=== PATIENT | male | born 1935 | race Caucasian/White ===

== ENCOUNTER → 2016-10-28 | Outpatient (CLI) | payer MEDICARE, OTHER | LOC: COL.RAD 11:06 | DX: M25.511 Pain in right shoulder (principal); M25.411 Effusion, right shoulder; Z96.611 Presence of right artificial shoulder joint ==

== ENCOUNTER 2017-08-07 05:07 | Day surgery (SDC) | payer MEDICARE, OTHER ==
[~2017-08-07] VITALS: Ht 180.3 cm; Wt 93.6 kg
[2017-08-07] MEDS ORDERED: TOPROL XL 50MG50 MG PO (05:47)
[2017-08-07] MEDS ORDERED: LIPITOR20 MG PO (05:48)
[2017-08-07] MEDS ORDERED: MULTI VITAMINS1 TAB PO (05:49)
[2017-08-07] MEDS ORDERED: ASPIRIN 81M81 MG/TA2 PO (05:49)
[2017-08-07] MEDS ORDERED: PROSVENT PO (05:50)
[2017-08-07] MEDS ORDERED: CALTRATE-600 W600 MG PO (05:50)
[2017-08-07] MEDS ORDERED: VITAMIN C500 MG PO (05:50)
[2017-08-07] MEDS ORDERED: OMEGA-3 1000 MG1 CAP PO (05:51)
[2017-08-07 05:54] VITALS: BP 116/56; PULSE 60; TEMP 97.8
[2017-08-07 08:25] VITALS: BP 136/58; PULSE 82; TEMP 97.2
[2017-08-07 08:40] VITALS: BP 120/57; PULSE 62
[2017-08-07 08:55] VITALS: BP 112/63; PULSE 68
== END 2017-08-07 09:40 | disposition home or self-care (01) ==
LOC: SDCO 05:07
DX: L60.2 Onychogryphosis (principal); M25.774 Osteophyte, right foot; L89.899 Pressure ulcer of other site, unspecified stage; L84 Corns and callosities; Z79.82 Long term (current) use of aspirin; I10 Essential (primary) hypertension; M19.90 Unspecified osteoarthritis, unspecified site; M06.9 Rheumatoid arthritis, unspecified; F17.220 Nicotine dependence, chewing tobacco, uncomplicated; Z80.9 Family history of malignant neoplasm, unspecified; Z82.49 Family history of ischemic heart disease and other diseases of the circulatory system; Z68.28 Body mass index [BMI] 28.0-28.9, adult; E78.00 Pure hypercholesterolemia, unspecified; I25.10 Atherosclerotic heart disease of native coronary artery without angina pectoris; K21.9 Gastro-esophageal reflux disease without esophagitis; Z87.442 Personal history of urinary calculi
CPT/HCPCS: J0690; J2704; J3010; J7120

== ENCOUNTER → 2018-08-29 | Outpatient (CLI) | payer MEDICARE, OTHER ==
[~2018-08-29] MED LIST: ASPIRIN 81M81 MG/TA2 PO; CALTRATE-600 W600 MG PO; LIPITOR20 MG PO; MULTI VITAMINS1 TAB PO; OMEGA-3 1000 MG1 CAP PO; PROSVENT PO; TOPROL XL 50MG50 MG PO; VITAMIN C500 MG PO
[2018-08-29 12:00] LABS: HEMATOCRIT 39.1 % (42.0-52.0); HEMOGLOBIN 12.5 g/dl (13.5-18.0); MEAN CELL VOLUME 92 fl (80.0-100.0); MEAN CORPUSCULAR HEMOGLOBIN 29 pg (27.0-31.0); MEAN CORPUSCULAR HGB CONC 32 g/dl (33.0-37.0); MEAN PLATELET VOLUME 9.6 fl (7.4-10.4); PLATELET COUNT 236 K/mm3 (130-400); RED BLOOD COUNT 4.26 M/mm3 (4.20-5.60); REDCELL DISTRIBUTION WIDTH-CV 12.5 % (11.5-14.5)
[2018-08-29 12:21] LABS: ALBUMIN 3.5 gm/dL (3.5-5.0); BILIRUBIN,TOTAL 0.5 mg/dL (0.0-1.0); C-REACTIVE PROTEIN 0.8 mg/dL (0.0-0.9); CALCIUM 8.9 mg/dL (8.4-10.2); CREATININE, serum 0.65 mg/dL (0.66-1.25); POTASSIUM 4.2 mmol/L (3.4-5.0); TOTAL PROTEIN 6.9 gm/dL (6.4-8.2)
[2018-08-29 12:38] LABS: ERYTHROCYTE SEDIMENTATION RATE 18 mm/hr (0-30)
== END ==
LOC: COL.LAB 10:52
PROVIDERS: Orthopaedic Surgery
DX: M25.511 Pain in right shoulder (principal); Z96.611 Presence of right artificial shoulder joint

== ENCOUNTER 2018-08-30 15:14 | Inpatient (IN) | payer MEDICARE, OTHER ==
[~2018-08-30] VITALS: Ht 180.3 cm; Wt 85.9 kg
[2018-11-06] VITALS (9 sets, daily range): BP systolic 95–137; BP diastolic 42–63; PULSE 5–91; TEMP 97.3–98.1
--- NOTE | 2018-11-06 06:19 | NUR ---
PT TO ROOM 329 PER WHEEL CHAIR. PRE OP ASSESSMENTS COMPLETE. EGK COMPLETE AND DR. BOYD NOTIFIED HIS RESPONSE WAS IT WILL BE READ AROUND 0700. OR NOTIFIED. ZAKI BOOTHE NOTIFIED @ 6965 THAT SURGICAL H&P NOT RECIEVED.
--- NOTE | 2018-11-06 06:28 | NUR ---
PT TO SURGERY PER BED WITH YONATAN AT THIS TIME. REPORT TO ESVIN VAZQUEZ. NOTIFIED OF PENDING EKG READING BY DR. GALO.
--- NOTE | 2018-11-06 11:36 | NUR ---
PT TO ROOM 329 PER BED WITH REPORT FROM STELLA IGNACIO PACU @8139. PT IS A/O X3, FOAM TAPE DRESSING TO RIGH SHOULDER WITH ICE BAG OVER INCISION. RIGHT ARM CDI IN ADDUCTION SLING.IV TO PUMP. SCDS BILATERALLY. PT DENIES PAIN. IV FLUIDS TO PUMP PER ORDERS.
--- NOTE | 2018-11-06 12:01 | NUR ---
First visit from the healthcare prof. Planning Advisor spoke with about healthcare prof services. No needs at this time.
--- NOTE | 2018-11-06 13:33 | NUR ---
SW student met with patient to discuss discharge plan. Patient lives [place] of [place] with his (Cristi). Patient's PCP was Dr. Floyd but since he retired, patient will go to see one of doctors that took over Mariel's practice. Patient uses the [facility]. Patient uses a cane regularly and also has a walker at home if needed. Patient needed occasional assistance with ADLs prior to surgery and states his has been able to help him so far. Patient does not have a DPOA-HC completed and was not interested in completing one as his is next of kin to make those decisions for him if needed. Dr. Chiu will set up PT with patient after shoulder has healed for 4-6 weeks. No identified needs at this time. SW to continue to follow to ensure safe discharge.
--- NOTE | 2018-11-06 19:22 | NUR ---
REPORT TO KATHERIN IGNACIO.
--- NOTE | 2018-11-06 20:30 | NUR ---
Upon assessment patient is resting comfortably in bed. Denies any pain to right shoulder. Denies N/V. Does report feeling to fingers, but states that they are still tingling. Bulky dressing to right shoulder CDI. Patient has IV fluids infusing at this time. No other needs at this time.
[2018-11-07 00:56] VITALS: BP 94/55; PULSE 61; TEMP 97.9
[2018-11-07 05:20] VITALS: BP 106/51; PULSE 57; TEMP 98.1
--- NOTE | 2018-11-07 07:40 | NUR ---
Patient report given to MATEUS Maya at bedside. Patient resting comfortably.
--- NOTE | 2018-11-07 10:03 | NUR ---
PT UP WITH HELP SEVERAL TIMES THIS AM. OK FOR DISCHARGE LATER TODAY. AQUACEL PLACED OVER INCISION. NOELLE INTACT. PT EATING AND DRINKING NO N/V. PAIN WELL CONTROLLED.
--- NOTE | 2018-11-07 10:50 | NUR ---
DISCHARGE INSTRUCTIONS REVIEWED WITH PT AND SPOUSE. QUESTIONS ANSWERED, PT TAKEN BY WHEEL CHAIR TO FRONT.
== END 2018-11-07 10:51 | disposition home or self-care (01) | DRG 483 ==
LOC: JCC 10-01 10:30
PROVIDERS: ADMIT Orthopaedic Surgery
PROC: 0RPJ0JZ Removal of Synthetic Substitute from Right Shoulder Joint, Open Approach (ICD-10-PCS; 2018-11-06)
PROC: 0RBJ0ZZ Excision of Right Shoulder Joint, Open Approach (ICD-10-PCS; 2018-11-06)
PROC: 0RRJ0J6 Replacement of Right Shoulder Joint with Synthetic Substitute, Humeral Surface, Open Approach (ICD-10-PCS; principal; 2018-11-06 07:30)
DX: T84.028A Dislocation of other internal joint prosthesis, initial encounter (principal); Z96.611 Presence of right artificial shoulder joint; I10 Essential (primary) hypertension; M06.9 Rheumatoid arthritis, unspecified; Z89.411 Acquired absence of right great toe; F17.220 Nicotine dependence, chewing tobacco, uncomplicated; M24.011 Loose body in right shoulder; I25.10 Atherosclerotic heart disease of native coronary artery without angina pectoris; J44.9 Chronic obstructive pulmonary disease, unspecified; F01.50 Vascular dementia, unspecified severity, without behavioral disturbance, psychotic disturbance, mood disturbance, and anxiety; K76.0 Fatty (change of) liver, not elsewhere classified; E78.5 Hyperlipidemia, unspecified
CPT/HCPCS: A4619; A9284; C1713; C1776; J0690; J1100; J2250; J2370; J2405; J2704; J2795; J3010; J3370; J7042; J7120

== ENCOUNTER 2018-11-08 08:09 | Outpatient (RCR) | payer MEDICARE, OTHER ==
[2018-11-13] MEDS ORDERED: OCUVITE1 TA1 PO (12:57)
[2018-11-13] MEDS ORDERED: MOTRIN 200200 MG/TAB PO (12:57)
[2018-11-25] MEDS ORDERED: ULTRAM 50MG TAB50 MG PO (09:16)
[2018-11-25] MEDS ORDERED: ROCEPHIN 2GM VIAL21 IV (14:12)
[2018-11-25] MEDS ORDERED: CUBICIN 500MG500 MG IV (14:12)
== END 2018-12-11 11:35 | disposition home or self-care (01) ==
LOC: WSC 08:09
DX: Z98.890 Other specified postprocedural states (principal); Z96.611 Presence of right artificial shoulder joint

== ENCOUNTER 2018-11-13 12:20 | Day surgery (SDC) | payer MEDICARE, OTHER ==
[~2018-11-13] VITALS: Ht 180.3 cm; Wt 86.4 kg
[2018-11-13] VITALS (9 sets, daily range): BP systolic 117–157; BP diastolic 50–64; PULSE 43–65; TEMP 97.5–98
--- NOTE | 2018-11-13 12:35 | NUR ---
arrived per WC to room 326, assisted into gown and into bed, at bedside
[2018-11-13] MEDS ORDERED: MOTRIN 200200 MG/TAB PO (12:57)
[2018-11-13] MEDS ORDERED: OCUVITE1 TA1 PO (12:57)
--- NOTE | 2018-11-13 13:00 | NUR ---
[facility] [place] see intervention for furtherinfo, IV started by MATEUS Finnegan, assessment revealed large pressure dressing to right shoulder with small amount of shadowing seen, patient states was in the Dr's office before coming to hospital and this dressing was placed by physician, has swome swelling to right arm and fingers, and minimal tingling, has full sensation and movement to right hand and fingers, consent for surgery signed, only has minimal pain, at bedside
--- NOTE | 2018-11-13 13:40 | NUR ---
to surgery per bed
--- NOTE | 2018-11-13 16:10 | NUR ---
returned to room from PACU, per bed, alert and oriented, IV infusing per dial-a-flow at 125ml/hr, O2 on at 2L/NC, bulky dressing with shamar wrap to right shoulder CD&I and sling on, has good sensation and movement to right hand, denies pain or needs, at bedside
--- NOTE | 2018-11-13 16:30 | NUR ---
has tolerated ice chips well, is hungry now, assisted with having pudding and if tolerates will let him order regular food
--- NOTE | 2018-11-13 17:00 | NUR ---
appears to be sleeping between checks
--- NOTE | 2018-11-13 17:30 | NUR ---
sitting up on side of bed eating supper and tolerates well
--- NOTE | 2018-11-13 18:00 | NUR ---
was able to stand at side of bed and then repositioned up in bed for comfort, dressing to right shoulder remains CD&I, denies needs
--- NOTE | 2018-11-13 18:52 | NUR ---
appears to be dozing with TV on, bedside shift report given to MATEUS Hamilton
--- NOTE | 2018-11-13 19:20 | NUR ---
Pt sleeping. No distress noted. Easily arousable. Respirations even and unlabored. Lungs clear. Abd soft, nontender. BS+. R shoulder incision with dressing clean dry and intact. Williams wrap to R shoulder. Sling to R arm. Ice pack on r shoulder. 2+ edema noted to R hand. CMS intact. Pulses equal. Pt weating O2@2 L via NC. Post op VSS. Pt has not been out of bed yet or voided. Pt denies pain. No needs noted. Will continue to monitor.
--- NOTE | 2018-11-13 21:30 | NUR ---
Pt sleeping. Difficult to arouse due to pt being hard of hearing. Pt awake and given HS meds. Pt denies pain. Pt up to bathroom with 2 assist. Gait is steady. No difficulty. Voiding clear, yellow urine.
[2018-11-14 00:44] VITALS: BP 128/64; PULSE 58; TEMP 98.1
[2018-11-14 04:05] VITALS: BP 120/54; BP 1220/54; PULSE 53; TEMP 97.8
--- NOTE | 2018-11-14 04:05 | NUR ---
Pt resting with HOB elevated. Easily arousable. No distress noted. VSS. Pt denies pain at this time. R hand swelling is still marked. Sling repositioned. YAMIL wrap removed from lower part of R arm. R hand elevated. CMS is intact in R hand. Will continue to monitor.
[2018-11-14 06:00] LABS: HEMATOCRIT 29.4 % (42.0-52.0); HEMOGLOBIN 9.2 g/dl (13.5-18.0)
--- NOTE | 2018-11-14 06:05 | NUR ---
Pt sleeping but easily awoken. Pt slept a majority of the shift. Was out of bed x1 to ambulate to bathroom. Also used urinal x1. Pt denied pain throughout shift. R hand continues to be edematous, but CMS intact. No other needs noted this AM.
[2018-11-14 07:46] VITALS: BP 133/79; PULSE 72; TEMP 97.9
--- NOTE | 2018-11-14 08:00 | NUR ---
Patient in room, alert and oriented x 3. Shift assessment complete. Occlusive dressing to right shoulder is CDI. Right arm in sling, +2 edema noted to right hand, CMS intact. Patient denies pain at this time. Denies further needs at this time.
--- NOTE | 2018-11-14 10:20 | NUR ---
Discharge instructions provided to patient. Educated on maintaining arm in sling and follow up appointment tomorrow to change dressing. Patient educated on signs and symptoms of infection and when to call provider. All questions answered. Patient verbalizes understanding. Denies further needs at this time. Assisted patinet to dress. Spouse at bedside. Patient out by wheelchair with surgical staff.
--- NOTE | 2018-11-14 10:35 | NUR ---
SW unable to meet with patient before discharge.
--- NOTE | 2018-11-14 11:44 | NUR ---
First visit from the children's court magistrate. No needs right now.
== END 2018-11-14 10:20 | disposition home or self-care (01) ==
LOC: SDCO 12:20 → SURG 12:20 → SDCO 17:00
PROVIDERS: Physician Assistant
DX: M96.840 Postprocedural hematoma of a musculoskeletal structure following a musculoskeletal system procedure (principal); D50.8 Other iron deficiency anemias; E78.00 Pure hypercholesterolemia, unspecified; I10 Essential (primary) hypertension; M06.9 Rheumatoid arthritis, unspecified; I25.10 Atherosclerotic heart disease of native coronary artery without angina pectoris; J44.9 Chronic obstructive pulmonary disease, unspecified; K21.9 Gastro-esophageal reflux disease without esophagitis; F03.90 Unspecified dementia, unspecified severity, without behavioral disturbance, psychotic disturbance, mood disturbance, and anxiety; F17.220 Nicotine dependence, chewing tobacco, uncomplicated; G89.29 Other chronic pain; Z96.611 Presence of right artificial shoulder joint; Z89.421 Acquired absence of other right toe(s); Z79.82 Long term (current) use of aspirin; Z80.9 Family history of malignant neoplasm, unspecified; Z82.49 Family history of ischemic heart disease and other diseases of the circulatory system; Z95.2 Presence of prosthetic heart valve; Z87.442 Personal history of urinary calculi; Z85.828 Personal history of other malignant neoplasm of skin
CPT/HCPCS: OP; A4619; A9284; J0690; J1100; J2405; J2704; J3010; J7120

== ENCOUNTER 2018-11-20 00:37 | Emergency (ER) | payer MEDICARE, OTHER ==
[~2018-11-20] VITALS: Ht 180.3 cm; Wt 84.1 kg
[~2018-11-20 00:37] MED LIST changes: +MOTRIN 200200 MG/TAB PO; +OCUVITE1 TA1 PO
[2018-11-20 00:46] VITALS: BP 149/77
[2018-11-20 00:53] VITALS: TEMP 98.3
[2018-11-20 03:18] LABS: BASO % 0.3 % (0.0-2.0); EOS # 0.1 (0.0-0.7); EOS % 1.8 % (0-4.0); GRAN # 3.7 (1.4-6.5); GRAN % 56.6 % (42.2-75.2); HEMATOCRIT 32.2 % (42.0-52.0); LYMPH # 2.2 (1.2-3.4); LYMPH % 33.4 % (20.0-51.0); MEAN CELL VOLUME 92 fl (80.0-100.0); MEAN CORPUSCULAR HEMOGLOBIN 29 pg (27.0-31.0); MEAN CORPUSCULAR HGB CONC 31 g/dl (33.0-37.0); MEAN PLATELET VOLUME 9.5 fl (7.4-10.4); MONO # 0.5 (0.1-0.6); MONO % 7.3 % (1.7-9.3); PLATELET COUNT 175 K/mm3 (130-400); RED BLOOD COUNT 3.51 M/mm3 (4.20-5.60); REDCELL DISTRIBUTION WIDTH-CV 15.3 % (11.5-14.5)
[2018-11-20 03:22] LABS: INR 1.1 (0.8-3.0); PROTHROMBIN TIME 12.7 SECONDS (9.7-12.8)
[2018-11-20 03:27] LABS: CALCIUM 8.6 mg/dL (8.4-10.2); CREATININE, serum 0.66 (0.66-1.25); POTASSIUM 4.6 mmol/L (3.4-5.0)
[2018-11-20 03:55] VITALS: PULSE 53
== END 2018-11-20 03:55 | disposition home or self-care (01) ==
LOC: COL.ER 00:37
PROVIDERS: Emergency Medicine
DX: L76.32 Postprocedural hematoma of skin and subcutaneous tissue following other procedure (principal); I10 Essential (primary) hypertension

== ENCOUNTER 2018-11-21 09:45 | Inpatient (IN) | payer MEDICARE, OTHER ==
[2018-11-21] VITALS (12 sets, daily range): BP systolic 80–146; BP diastolic 33–59; PULSE 57–69; TEMP 97.7–98
[~2018-11-21] VITALS: Ht 180.3 cm; Wt 87.9 kg
--- NOTE | 2018-11-21 10:15 | NUR ---
arrived on unit per WC, assisted out of WC and into bed and then into gown
--- NOTE | 2018-11-21 11:15 | NUR ---
admission assessment and preop checklist completed, bat carrier in to visit with patient, is ready for surgery, denies needs
--- NOTE | 2018-11-21 12:06 | NUR ---
to surgery per bed
--- NOTE | 2018-11-21 15:20 | NUR ---
returned to room from PACU per bed, appears very sleepy but awakens easily and is oriented, has bulky occlusive dressing with tim drain to compression to right shoulder, has light red drainage in tubing and reservoir, abduction sling on, has good sensation and movement to right hand and fingers, denies needs at this time
--- NOTE | 2018-11-21 15:45 | NUR ---
appears to be sleeping when enter room, awakens easily and C&DB as instructed,
--- NOTE | 2018-11-21 16:13 | NUR ---
continues to appear to sleep
--- NOTE | 2018-11-21 16:33 | NUR ---
awakens easily and denies needs
--- NOTE | 2018-11-21 17:05 | NUR ---
awakened and informed he had a visitor, is ready for something to eat, dozes while being asked what he wants to eat but then awakens when name is called, supper ordered
--- NOTE | 2018-11-21 17:30 | NUR ---
is awake and sitting up in bed feeding self,
--- NOTE | 2018-11-21 18:00 | NUR ---
Dr Chiu in to see patient and explained to him he must wear the abduction sling at all times except for bathing and dressing, he verbalizes he understands, unsure if he really does, continues with good sensation amd movement to right hand, had supper and tolerated well, denies urge to void
--- NOTE | 2018-11-21 18:44 | NUR ---
awakened and bedside shift report given to Alysia RN
--- NOTE | 2018-11-21 20:00 | NUR ---
Patient very sleepy, rouses to name being called, denies pain. Able to take po meds without problem. Has rt arm in sling, oxygen on at 3L/nc. IVF infusing to left upper arm without redness or swelling.
[2018-11-22 04:00] VITALS: BP 127/45; PULSE 64; TEMP 98.2
--- NOTE | 2018-11-22 04:08 | NUR ---
Patient had not voided since surgery. Assisted to standing at bedside, voids per urinal 400cc of yellow urine. JONATHAN emtied for 30cc sero-sang drainage. Back to bed, oxygen on at 3L/nc. IVF infusing to left upper arm without redness or swelling. Denies need for pain medication at this time, reports no pain to right shoulder. Rt arm remains in sling.
[2018-11-22 07:20] VITALS: BP 107/48; PULSE 57; TEMP 97.9
--- NOTE | 2018-11-22 09:00 | NUR ---
Initial visit; Patient thanked Corporate Travel Expert for looking in on him, offering comfort and encouragement and God's blessings.
[2018-11-22 10:35] VITALS: BP 132/57; PULSE 85; TEMP 97.9
--- NOTE | 2018-11-22 13:38 | NUR ---
SW met with patient to discuss discharge planning. Patient lives independently at home with his and he plans to return there upon discharge. Patient's PCP is Dr Alegria and he obtains prescriptions from [facility]. Patient does not use any DME or home health services and does not think he will need those services anytime in the future. SW does not anticipate any discharge needs but with follow as needed.
[2018-11-22 16:18] VITALS: BP 122/45; PULSE 71; TEMP 98.3
--- NOTE | 2018-11-22 19:00 | NUR ---
Patient has been doing well today. No complaints of pain. He continues to need reminders to not use his right arm. He is not getting up and moving as well as he did at home. He continues to have moderate output from his drain. His was here most the day. No other changes at this time.
[2018-11-22 19:59] VITALS: BP 123/93; PULSE 77; TEMP 98.9
--- NOTE | 2018-11-22 20:05 | NUR ---
Patient in bed, reports pain to back and nothing significant to right shoulder. Takes HS meds including Tramadol 50mg po at this time. JONATHAN with 30cc drainage emptied at this time. CSM to right hand WNL. Right arm remains in sling, dressing D/I and ice pack applied.
[2018-11-22 22:53] VITALS: BP 125/50; PULSE 66; TEMP 98.2
--- NOTE | 2018-11-22 23:25 | NUR ---
Patient reporting pain continues to back and some to right shoulder. Medicated with Oxycodone 5mg po at this time.
--- NOTE | 2018-11-23 02:28 | NUR ---
Assisted to standing at bedside, voids per urinal 250cc yellow urine. Back to bed with minimal assist.
[2018-11-23 04:13] VITALS: BP 112/50; PULSE 58; TEMP 97.2
--- NOTE | 2018-11-23 04:44 | NUR ---
Patient awake, offers no concerns, denies need to urinate at this time.
--- NOTE | 2018-11-23 06:30 | NUR ---
Dr Chiu in to see patient, bedside shift reprot received from MATEUS Hatfield
[2018-11-23 07:19] LABS: HEMATOCRIT 28.1 % (42.0-52.0); HEMOGLOBIN 8.4 g/dl (13.5-18.0); MEAN CELL VOLUME 95 fl (80.0-100.0); MEAN CORPUSCULAR HEMOGLOBIN 28 pg (27.0-31.0); MEAN CORPUSCULAR HGB CONC 30 g/dl (33.0-37.0); MEAN PLATELET VOLUME 9.8 fl (7.4-10.4); PLATELET COUNT 161 K/mm3 (130-400); RED BLOOD COUNT 2.97 M/mm3 (4.20-5.60); REDCELL DISTRIBUTION WIDTH-CV 15.7 % (11.5-14.5)
--- NOTE | 2018-11-23 07:30 | NUR ---
assisted patient up and ambulated out in cao, is a little unsteady but ok with assistance, back to room and will sit up in chair for breakfast, breakfast has been ordered, full assessment completed, see interventions for further info, bulky dressing remains in place with tim drain to compression with red drainage in reservoir, abduction sling on and reminded him of the importance and need to keep this on, denies needs at this time
[2018-11-23 07:44] LABS: ALBUMIN 2.7 gm/dL (3.5-5.0); BILIRUBIN,TOTAL 0.3 mg/dL (0.0-1.0); C-REACTIVE PROTEIN 6.6 mg/dL (0.0-0.9); CALCIUM 8.1 mg/dL (8.4-10.2); CREATININE, serum 0.68 (0.66-1.25); POTASSIUM 4.1 mmol/L (3.4-5.0); TOTAL PROTEIN 5.3 gm/dL (6.4-8.2)
[2018-11-23 08:16] VITALS: BP 111/56; PULSE 57; TEMP 98.1
--- NOTE | 2018-11-23 08:45 | NUR ---
assisted back to bed by LAWN CARETAKER and AICarlitos service nurse in to place PICC
[2018-11-23 08:46] LABS: BAND 2 % (0-10); LYMPHOCYTE 19 % (20.0-51.0); NEUTROPHILS 78 % (42.0-75.2); PLATELET ESTIMATE NORMAL (NORMAL)
[2018-11-23 08:48] LABS: ERYTHROCYTE SEDIMENTATION RATE 20 mm/hr (0-30)
--- NOTE | 2018-11-23 09:34 | NUR ---
resting in bed and am meds given, physical therapy in to ambulated patient
--- NOTE | 2018-11-23 10:03 | NUR ---
up and ambulated to bathroom with HAND ENDBAND CUTTER and then back to chair
--- NOTE | 2018-11-23 12:17 | NUR ---
here and at bedside, sat up on side of bed to eat lunch
[2018-11-23 12:43] VITALS: BP 147/60; PULSE 66; TEMP 97.5
--- NOTE | 2018-11-23 13:00 | NUR ---
sitting up in bed and eating lunch
--- NOTE | 2018-11-23 15:55 | NUR ---
ambulating in cao with physical therapy,
--- NOTE | 2018-11-23 16:24 | NUR ---
in bed and appears to be sleeping, eyes closed, resp quiet and easy
[2018-11-23 16:55] VITALS: BP 131/48; PULSE 67; TEMP 98.4
--- NOTE | 2018-11-23 18:15 | NUR ---
resting in bed, Dr Ledezma called and spoke with patient
--- NOTE | 2018-11-23 18:37 | NUR ---
resting in bed waiting on supper,
--- NOTE | 2018-11-23 18:49 | NUR ---
bedside shift report given to Soraida IGNACIO
[2018-11-23 19:40] VITALS: BP 138/49; PULSE 67; TEMP 98.2
--- NOTE | 2018-11-23 21:16 | NUR ---
Shift assessment complete. Patient c/o 5/10 pain in right shoulder. Pain medication given. Right arm in sling as ordered. JONATHAN drain sanguineous, with small clot. Patient denies further needs, will continue to assess.
[2018-11-24] VITALS (7 sets, daily range): BP systolic 119–145; BP diastolic 47–59; PULSE 53–64; TEMP 97–98.3
--- NOTE | 2018-11-24 04:35 | NUR ---
Patient lying in bed, awake. States 5/10 pain in right shoulder. Prn pain medication given. Denies further needs at this time.
--- NOTE | 2018-11-24 11:00 | NUR ---
Patient has been resting most the morning. He sat up and ate breakfast and has been sleeping since. He denies pain. Dr Chiu was here and the plan is to discontinue drain and send him home tomorrow. Talked with Dr Ledezma about changing his antibiotics to once a day because the patient stated he can not make it here 3 times a day and does not want home health. No other changes at this time. Call light within reach.
--- NOTE | 2018-11-24 18:30 | NUR ---
Patient continues to do well. He had 60ml of red/pink drainage from his JONATHAN drain this shift. Dressing remains dry and intact. Patient has been doing better about following his directions. No other changes at this time. Call light within reach.
--- NOTE | 2018-11-24 19:13 | NUR ---
Report received from MATEUS Nevarez.
--- NOTE | 2018-11-24 19:36 | NUR ---
Patient resting in bed watching television. Denies pain. Site to right shoulder CDI. JONATHAN drain draining reddish fluid at bulb suction. PICC to MAYELIN, flushes with ease. Denies any further needs. Will continue to monitor throughout the night.
--- NOTE | 2018-11-25 00:22 | NUR ---
Patient resting in bed with eyes closed. Will continue to monitor patient.
[2018-11-25 00:46] VITALS: BP 135/58; PULSE 60; TEMP 98
[2018-11-25 03:01] VITALS: BP 148/42; PULSE 63; TEMP 98.2
--- NOTE | 2018-11-25 06:11 | NUR ---
Patient has rested well throughout the night. Denies pain. Currently resting in bed with eyes closed. Brace to right arm. Drain to bulb suction.
--- NOTE | 2018-11-25 06:55 | NUR ---
Report given to MATEUS Nevarez.
[2018-11-25] MEDS ORDERED: ULTRAM 50MG TAB50 MG PO (09:16)
[2018-11-25 10:10] VITALS: BP 135/64; PULSE 64; TEMP 98.3
--- NOTE | 2018-11-25 11:30 | NUR ---
Explained discharge plan. Explained he will be discharging today. Dr Chiu came in and removed his JONATHAN drain and placed an aquacel to the incision. Patient's sutures are intact, no drainage noted from incision. Patients is at bedside. Explained that he has to get his antibiotics today and his walker before discharging. No other changes at this time. Call light within reac.
[2018-11-25 11:56] VITALS: BP 125/47; PULSE 62; TEMP 98.2
--- NOTE | 2018-11-25 12:25 | NUR ---
Patient received orders for a wheeled walker with a right shoulder platform so certified social workers in health care provided the durable medical equipment choice form and patient chose [facility]. optical goods worker faxed face sheet, orders, prescription, history and physical to [facility] at [phone] and spoke with Izabella at [facility] to confirm the wheel walker referral and she will deliver the walker to the patient's room at approximately 12:00. optical goods worker informed patient's nurse (Geri) of this plan and no further needs at this time.
[2018-11-25 12:35] VITALS: BP 119/53; PULSE 61; TEMP 98.1
[2018-11-25] MEDS ORDERED: ROCEPHIN 2GM VIAL21 IV (14:12)
[2018-11-25] MEDS ORDERED: CUBICIN 500MG500 MG IV (14:12)
--- NOTE | 2018-11-25 15:30 | NUR ---
Patient is discharging home. Discharge instructions discussed with patient and his . Explained to keep PICC line clean and dry when he showers. Explained they need to call the express unit tomorrow at 0700 for his time to come get his antibiotics. Gave phone number to call for antibiotics. Copies of discharge instructions sent with patient. All belongings packed up and sent with patient. His platform walker has been set up for him to use and is being sent with him. Patient walked out via wheel chair.
== END 2018-11-25 15:30 | disposition home or self-care (01) | DRG 483 ==
LOC: SURG 09:45
PROVIDERS: ADMIT Orthopaedic Surgery
PROC: 0RRJ0JZ Replacement of Right Shoulder Joint with Synthetic Substitute, Open Approach (ICD-10-PCS; principal; 2018-11-22)
PROC: 0RPJ0JZ Removal of Synthetic Substitute from Right Shoulder Joint, Open Approach (ICD-10-PCS; 2018-11-22)
PROC: 0MD10ZZ Extraction of Right Shoulder Bursa and Ligament, Open Approach (ICD-10-PCS; 2018-11-22)
PROC: 0RCJ0ZZ Extirpation of Matter from Right Shoulder Joint, Open Approach (ICD-10-PCS; 2018-11-22)
PROC: 02HV33Z Insertion of Infusion Device into Superior Vena Cava, Percutaneous Approach (ICD-10-PCS; 2018-11-23)
DX: T84.028A Dislocation of other internal joint prosthesis, initial encounter (principal); M96.840 Postprocedural hematoma of a musculoskeletal structure following a musculoskeletal system procedure; T81.30XA Disruption of wound, unspecified, initial encounter; Y83.9 Surgical procedure, unspecified as the cause of abnormal reaction of the patient, or of later complication, without mention of misadventure at the time of the procedure; J44.9 Chronic obstructive pulmonary disease, unspecified; M06.9 Rheumatoid arthritis, unspecified; Z89.411 Acquired absence of right great toe; I25.10 Atherosclerotic heart disease of native coronary artery without angina pectoris; F17.220 Nicotine dependence, chewing tobacco, uncomplicated; K21.9 Gastro-esophageal reflux disease without esophagitis; I10 Essential (primary) hypertension; Z85.828 Personal history of other malignant neoplasm of skin; Z91.19 Patient's noncompliance with other medical treatment and regimen
CPT/HCPCS: A4566; A4619; A9284; C1751; C1776; J0690; J0696; J0878; J1100; J2270; J2405; J2704; J3010; J7042; J7120

== ENCOUNTER → 2018-11-21 | Outpatient (CLI) | payer MEDICARE, OTHER | LOC: ZLAB.STJ 16:40 | DX: Z01.89 Encounter for other specified special examinations (principal) ==

== ENCOUNTER 2019-01-07 09:30 | Outpatient (RCR) | payer MEDICARE, OTHER ==
[2018-11-26 10:43] VITALS: BP 124/63; PULSE 62; TEMP 98.7
[2018-11-27 09:46] VITALS: BP 115/44; PULSE 56; TEMP 98.1
[2018-11-28 09:30] VITALS: BP 105/45; PULSE 56; TEMP 98.2
[2018-11-29 11:46] VITALS: BP 109/46; PULSE 57; TEMP 98.6
[2018-11-30 09:00] VITALS: BP 108/33; PULSE 56; TEMP 98.3
--- NOTE | 2018-12-01 08:30 | NUR ---
PER PT REPORT PT HAS HAD LEFT ARM SWELLING SINCE YESTERDAY.Arm measured,35 cm this am.YAMIL wrapped tightly on left upper arm.this nurse removed YAMIL,dressing change completed and labs obtained.New YAMIL applied and encouraged to monitor and adjust YAMIL if it gets snug feeling.
[2018-12-01 08:53] LABS: MEAN CELL VOLUME 90 fl (80.0-100.0); MEAN CORPUSCULAR HGB CONC 31 g/dl (33.0-37.0); MEAN PLATELET VOLUME 9.7 fl (7.4-10.4); PLATELET COUNT 208 K/mm3 (130-400); RED BLOOD COUNT 3.22 M/mm3 (4.20-5.60); REDCELL DISTRIBUTION WIDTH-CV 14.6 % (11.5-14.5)
[2018-12-01 09:00] VITALS: BP 142/53; PULSE 60; TEMP 98.3
[2018-12-01 09:01] LABS: HEMATOCRIT 29.1 % (42.0-52.0); MEAN CORPUSCULAR HEMOGLOBIN 28 pg (27.0-31.0)
[2018-12-01 09:03] LABS: ALANINE AMINOTRANSFERASE 40 U/L (21-72); ALKALINE PHOSPHATASE 200 U/L (50-136); ANION GAP 9 mmol/L (7-16); AST,SGOT 38 U/L (15-37); BILIRUBIN,TOTAL 0.3 mg/dL (0.0-1.0); BLOOD UREA NITROGEN 11 mg/dL (9-20); CALCIUM 8.5 mg/dL (8.4-10.2); CARBON DIOXIDE 28 mmol/L (22-30); CHLORIDE 104 mmol/L (98-107); CREATININE, serum 0.65 (0.66-1.25); GLUCOSE 99 mg/dL (74-106); POTASSIUM 3.7 mmol/L (3.4-5.0); SODIUM 141 mmol/L (137-145)
[2018-12-01 09:04] LABS: CREATINE KINASE < 20 U/L (55-170)
[2018-12-02 08:22] VITALS: BP 122/59; PULSE 66; TEMP 98.6
[2018-12-03 09:47] VITALS: BP 108/44; PULSE 56; TEMP 98
[2018-12-04 09:04] VITALS: BP 102/33; PULSE 51; TEMP 98
[2018-12-05 08:43] VITALS: BP 134/47; PULSE 62; TEMP 97.8
[2018-12-06 09:04] VITALS: BP 121/87; PULSE 56; TEMP 98.3
[2018-12-07 09:30] VITALS: BP 98/33; PULSE 55; TEMP 97.9
--- NOTE | 2018-12-07 09:30 | NUR ---
PICC intact left upper arm with sterile dressing change done with insertion site cleansed with chloraprep x 1, chlorhexidine impregnated disk, skin prep, stat lock, and tegaderm applied. no signs or symptoms of IV complications noted. no concerns voiced. re-wrapped with shamar to protect catheter.
[2018-12-07 09:32] LABS: MEAN CELL VOLUME 90 fl (80.0-100.0); MEAN CORPUSCULAR HGB CONC 31 g/dl (33.0-37.0); MEAN PLATELET VOLUME 9.5 fl (7.4-10.4); PLATELET COUNT 215 K/mm3 (130-400); RED BLOOD COUNT 3.34 M/mm3 (4.20-5.60)
[2018-12-07 09:39] LABS: HEMOGLOBIN 9.3 g/dl (13.5-18.0); MEAN CORPUSCULAR HEMOGLOBIN 28 pg (27.0-31.0)
[2018-12-07 09:46] LABS: ALBUMIN 3.1 gm/dL (3.5-5.0); BILIRUBIN,TOTAL 0.2 mg/dL (0.0-1.0); CALCIUM 8.6 mg/dL (8.4-10.2); CREATININE, serum 0.73 (0.66-1.25); POTASSIUM 4.1 mmol/L (3.4-5.0); TOTAL PROTEIN 6.1 gm/dL (6.4-8.2)
[2018-12-08 07:49] VITALS: BP 118/45; PULSE 59; TEMP 98.3
[2018-12-09 08:18] VITALS: BP 112/44; PULSE 52; TEMP 98.1
[2018-12-10 09:05] VITALS: BP 126/47; PULSE 62; TEMP 98.4
[2018-12-11 09:56] VITALS: BP 111/50; PULSE 54; TEMP 98
[2018-12-12 09:04] VITALS: BP 125/53; PULSE 53; TEMP 97.6
[2018-12-13 09:10] VITALS: BP 138/43; PULSE 62; TEMP 97.9
[2018-12-14 09:00] VITALS: BP 128/43; PULSE 64; TEMP 98.5
--- NOTE | 2018-12-14 09:00 | NUR ---
PICC intact left upper arm with sterile dressing change done with insertion site cleansed with chloraprep x 1, chlorhexidine imgregnated disk, skin prep, stat lock, and tegaderm applied. no signs or symptoms of IV complications noted. no concerns voiced. re-wrapped with shamar to protect catheter.
[2018-12-14 09:51] LABS: MEAN CELL VOLUME 89 fl (80.0-100.0); MEAN CORPUSCULAR HEMOGLOBIN 28 pg (27.0-31.0); MEAN CORPUSCULAR HGB CONC 31 g/dl (33.0-37.0); MEAN PLATELET VOLUME 9.9 fl (7.4-10.4); PLATELET COUNT 217 K/mm3 (130-400); RED BLOOD COUNT 3.63 M/mm3 (4.20-5.60); REDCELL DISTRIBUTION WIDTH-CV 13.6 % (11.5-14.5)
[2018-12-14 10:02] LABS: ALBUMIN 3.3 gm/dL (3.5-5.0); BILIRUBIN,TOTAL 0.2 mg/dL (0.0-1.0); C-REACTIVE PROTEIN 0.7 mg/dL (0.0-0.9); CREATININE, serum 0.62 (0.66-1.25); POTASSIUM 4.6 mmol/L (3.4-5.0); TOTAL PROTEIN 6.4 gm/dL (6.4-8.2)
[2018-12-14 10:24] LABS: HEMATOCRIT 32.2 % (42.0-52.0)
[2018-12-14 10:30] LABS: ERYTHROCYTE SEDIMENTATION RATE 14 mm/hr (0-30)
[2018-12-15 08:00] VITALS: BP 114/39; PULSE 57; TEMP 98.1
[2018-12-16 08:00] VITALS: BP 122/37; PULSE 57; TEMP 97.9
[2018-12-17 09:03] VITALS: BP 123/34; PULSE 56; TEMP 98.2
[2018-12-18 09:16] VITALS: BP 113/31; PULSE 53; TEMP 98.2
[2018-12-19 09:19] VITALS: BP 104/33; PULSE 61; TEMP 98.2
[2018-12-20 09:27] VITALS: BP 136/63; PULSE 54; TEMP 98.7
[2018-12-21 08:00] VITALS: BP 128/96; PULSE 63; TEMP 97.9
--- NOTE | 2018-12-21 08:15 | NUR ---
PICC intact left upper arm with sterile dressing change done with insertion site cleansed with chloraprep x 1, chlorhexidine impregnated disk applied, skin prep, stat lock, and tegaderm applied. no signs or symptoms of IV complications noted. no concerns voiced. re-wrapped with shamar to protect catheter. to continue with cares in EU. voiced understanding of instructions.
[2018-12-21 08:47] LABS: MEAN CELL VOLUME 87 fl (80.0-100.0); MEAN CORPUSCULAR HEMOGLOBIN 27 pg (27.0-31.0); MEAN CORPUSCULAR HGB CONC 31 g/dl (33.0-37.0); MEAN PLATELET VOLUME 10.1 fl (7.4-10.4); PLATELET COUNT 184 K/mm3 (130-400); RED BLOOD COUNT 3.66 M/mm3 (4.20-5.60); REDCELL DISTRIBUTION WIDTH-CV 13.4 % (11.5-14.5)
[2018-12-21 08:57] LABS: ALBUMIN 3.2 gm/dL (3.5-5.0); BILIRUBIN,TOTAL 0.2 mg/dL (0.0-1.0); C-REACTIVE PROTEIN 1.2 mg/dL (0.0-0.9); CALCIUM 8.7 mg/dL (8.4-10.2); CREATININE, serum 0.64 (0.66-1.25); POTASSIUM 3.7 mmol/L (3.4-5.0); TOTAL PROTEIN 6.2 gm/dL (6.4-8.2)
[2018-12-21 09:03] LABS: ERYTHROCYTE SEDIMENTATION RATE 18 mm/hr (0-30)
[2018-12-22 08:17] VITALS: BP 121/40; PULSE 61; TEMP 97.9
[2018-12-23 08:39] VITALS: BP 130/67; PULSE 64; TEMP 97.2
[2018-12-24 09:09] VITALS: BP 140/58; PULSE 55; TEMP 97.7
[2018-12-25 09:01] VITALS: BP 125/40; PULSE 57; TEMP 97.9
--- NOTE | 2018-12-25 09:11 | NUR ---
Informed from Charge nurse MATEUS Morales that we are no longer calling Dr. Sexton is no longer needing daily updates on pt due to pt following up with Dr. Lawrence at this time.
[2018-12-26 09:09] VITALS: BP 129/63; PULSE 51; TEMP 97.6
[2018-12-27 09:22] VITALS: BP 118/48; PULSE 63; TEMP 98
[2018-12-28 09:00] VITALS: BP 136/53; PULSE 79; TEMP 97.3
[2018-12-28 09:16] LABS: ALBUMIN 3.4 gm/dL (3.5-5.0); BILIRUBIN,TOTAL 0.2 mg/dL (0.0-1.0); CALCIUM 8.9 mg/dL (8.4-10.2); CREATININE, serum 0.63 (0.66-1.25); TOTAL PROTEIN 6.6 gm/dL (6.4-8.2)
[2018-12-28 09:19] LABS: BASO % 0.5 % (0.0-2.0); GRAN # 4.9 (1.4-6.5); GRAN % 60.2 % (42.2-75.2); HEMOGLOBIN 10.7 g/dl (13.5-18.0); LYMPH # 2.5 (1.2-3.4); MEAN CELL VOLUME 88 fl (80.0-100.0); MEAN CORPUSCULAR HEMOGLOBIN 27 pg (27.0-31.0); MEAN CORPUSCULAR HGB CONC 31 g/dl (33.0-37.0); MEAN PLATELET VOLUME 10.1 fl (7.4-10.4); MONO # 0.7 (0.1-0.6); MONO % 8.7 % (1.7-9.3); PLATELET COUNT 220 K/mm3 (130-400); RED BLOOD COUNT 3.96 M/mm3 (4.20-5.60); REDCELL DISTRIBUTION WIDTH-CV 13.6 % (11.5-14.5)
[2018-12-28 09:23] LABS: HEMATOCRIT 34.9 % (42.0-52.0)
[2018-12-29 09:05] VITALS: BP 132/53; PULSE 58; TEMP 98.7
[2018-12-30 08:00] VITALS: BP 135/71; PULSE 56; TEMP 97.8
[2018-12-31 09:21] VITALS: BP 132/50; PULSE 58; TEMP 97.6
[2019-01-01 08:48] VITALS: BP 117/49; PULSE 62; TEMP 99
[2019-01-02 09:11] VITALS: BP 102/52; PULSE 54; TEMP 97.8
[2019-01-03 07:41] VITALS: BP 127/52; PULSE 57; TEMP 97.6
[2019-01-04 08:00] VITALS: BP 103/52; PULSE 61; TEMP 98.6
--- NOTE | 2019-01-04 08:00 | NUR ---
PICC intact left upper arm. With sterile technique left upper arm PICC dressing change done with insertion site cleansed with ChloraPrep 1, chlorhexidine impregnated disc applied, StatLock, and Tegaderm applied. No signs or symptoms of IV complications noted. No concerns voiced. Arm wrapped with Williams to protect catheter.
[2019-01-05 08:19] VITALS: BP 138/69; PULSE 57; TEMP 98.1
[2019-01-06 08:16] VITALS: BP 146/52; PULSE 57; TEMP 98.5
[~2019-01-07] VITALS: Ht 180.3 cm; Wt 85.2 kg
[2019-01-07 09:15] VITALS: BP 122/43; PULSE 51; TEMP 98.3
[2019-01-07 09:20] LABS: BASO % 0.4 % (0.0-2.0); GRAN # 2.8 (1.4-6.5); GRAN % 53.9 % (42.2-75.2); HEMOGLOBIN 10.8 g/dl (13.5-18.0); LYMPH # 1.9 (1.2-3.4); LYMPH % 36.1 % (20.0-51.0); MEAN CELL VOLUME 87 fl (80.0-100.0); MEAN CORPUSCULAR HEMOGLOBIN 27 pg (27.0-31.0); MEAN CORPUSCULAR HGB CONC 30 g/dl (33.0-37.0); MONO # 0.5 (0.1-0.6); MONO % 9.4 % (1.7-9.3); PLATELET COUNT 172 K/mm3 (130-400); RED BLOOD COUNT 4.07 M/mm3 (4.20-5.60)
[2019-01-07 09:23] LABS: HEMATOCRIT 35.5 % (42.0-52.0)
[~2019-01-07 09:30] MED LIST changes: +CUBICIN 500MG500 MG IV; +ROCEPHIN 2GM VIAL21 IV; +ULTRAM 50MG TAB50 MG PO
[2019-01-07 09:33] LABS: ALANINE AMINOTRANSFERASE 19 U/L (21-72); ALBUMIN 3.4 gm/dL (3.5-5.0); ALKALINE PHOSPHATASE 102 U/L (50-136); ANION GAP 8 mmol/L (7-16); AST,SGOT 33 U/L (15-37); BILIRUBIN,TOTAL 0.3 mg/dL (0.0-1.0); BLOOD UREA NITROGEN 12 mg/dL (9-20); C-REACTIVE PROTEIN < 0.5 mg/dL (0.0-0.9); CALCIUM 9.1 mg/dL (8.4-10.2); CARBON DIOXIDE 27 mmol/L (22-30); CHLORIDE 105 mmol/L (98-107); CREATINE KINASE 52 U/L (55-170); GLUCOSE 85 mg/dL (74-106); POTASSIUM 4.2 mmol/L (3.4-5.0); SODIUM 141 mmol/L (137-145); TOTAL PROTEIN 6.4 gm/dL (6.4-8.2)
[2019-01-07 09:57] LABS: ERYTHROCYTE SEDIMENTATION RATE 7 mm/hr (0-30)
--- NOTE | 2019-01-07 10:00 | NUR ---
Pt jose PICC removal well. MAYELIN dressing C/D/I. Pt discharged per w/c with .
== END 2019-01-07 10:28 | disposition home or self-care (01) ==
LOC: EUO 09:30
PROVIDERS: Internal Medicine Infectious Disease; Nurse Practitioner
DX: M00.9 Pyogenic arthritis, unspecified (principal); B95.8 Unspecified staphylococcus as the cause of diseases classified elsewhere; Z79.2 Long term (current) use of antibiotics
CPT/HCPCS: J0696; J0878

== ENCOUNTER → 2019-01-25 | Outpatient (CLI) | payer MEDICARE, OTHER ==
[2019-01-25 12:40] LABS: ALANINE AMINOTRANSFERASE 18 U/L (21-72); ALBUMIN 3.5 gm/dL (3.5-5.0); ALKALINE PHOSPHATASE 74 U/L (50-136); ANION GAP 7 mmol/L (7-16); AST,SGOT 33 U/L (15-37); BILIRUBIN,TOTAL 0.4 mg/dL (0.0-1.0); BLOOD UREA NITROGEN 15 mg/dL (9-20); CALCIUM 8.9 mg/dL (8.4-10.2); CARBON DIOXIDE 28 mmol/L (22-30); CHLORIDE 106 mmol/L (98-107); CREATININE, serum 0.67 (0.66-1.25); GLUCOSE 86 mg/dL (74-106); POTASSIUM 4.2 mmol/L (3.4-5.0); SODIUM 141 mmol/L (137-145); TOTAL PROTEIN 6.2 gm/dL (6.4-8.2)
[2019-01-25 12:41] LABS: C-REACTIVE PROTEIN < 0.5 mg/dL (0.0-0.9)
[2019-01-25 12:44] LABS: BASO % 0.6 % (0.0-2.0); EOS # 0.1 (0.0-0.7); EOS % 2.4 % (0-4.0); GRAN # 2.6 (1.4-6.5); GRAN % 51.3 % (42.2-75.2); HEMOGLOBIN 11.5 g/dl (13.5-18.0); LYMPH # 1.9 (1.2-3.4); LYMPH % 36.8 % (20.0-51.0); MEAN CELL VOLUME 87 fl (80.0-100.0); MEAN CORPUSCULAR HEMOGLOBIN 27 pg (27.0-31.0); MEAN CORPUSCULAR HGB CONC 31 g/dl (33.0-37.0); MEAN PLATELET VOLUME 10.8 fl (7.4-10.4); MONO # 0.4 (0.1-0.6); MONO % 8.5 % (1.7-9.3); PLATELET COUNT 142 K/mm3 (130-400); REDCELL DISTRIBUTION WIDTH-CV 15.7 % (11.5-14.5)
[2019-01-25 12:47] LABS: HEMATOCRIT 36.6 % (42.0-52.0)
[2019-01-25 13:24] LABS: ERYTHROCYTE SEDIMENTATION RATE 1 mm/hr (0-30)
== END ==
LOC: COL.LAB 11:57
PROVIDERS: Nurse Practitioner
DX: T84.50XA Infection and inflammatory reaction due to unspecified internal joint prosthesis, initial encounter (principal); A49.01 Methicillin susceptible Staphylococcus aureus infection, unspecified site